=== PATIENT | female | born 1985 | race Asian ===

== ENCOUNTER 2025-01-15 19:55 | Emergency (ER) | payer OTHER ==
[2025-01-15 20:08] VITALS: BP 115/61; PULSE 65; RESP 20; TEMP 98.1; BMI 21.4
[2025-01-15] MEDS ORDERED: HIV POST EXPOSURE PROPHYLAXIS KIT PO ONE (20:39)
[2025-01-15] MEDS: HIV POST EXPOSURE PROPHYLAXIS KIT PO ONE (20:41)
[2025-01-15 20:44] LABS: BASO % 0.4 % (0-2.0); EOS % 2.1 % (0-4.5); HEMATOCRIT 40.3 % (32.4-45.2); HEMOGLOBIN 13.5 GM/dL (10.7-15.3); LYMPH % 19.1 % (8-40); MCH 28.6 pg (25.7-33.7); MCHC 33.5 g/dl (32.0-36.0); MEAN CELL VOLUME 85.3 fl (80-96); MEAN PLT VOLUME 8.7 fl (7.5-11.1); MONO % 7.8 % (3.8-10.2); NEUT % 70.6 % (42.8-82.8); PLATELET COUNT 262 10^3/uL (134-434); RBC 4.73 M/mm3 (3.60-5.2); RDW 13.1 % (11.6-15.6); WHITE BLOOD COUNT 8.3 K/mm3 (4.0-10.0)
[2025-01-15 21:02] LABS: CHLORIDE 106 mmol/L (98-107); POTASSIUM 3.9 mmol/L (3.5-5.1); SODIUM 138 mmol/L (136-145)
[2025-01-15 21:06] LABS: CALCIUM 8.6 mg/dL (8.5-10.1)
[2025-01-15 21:07] LABS: ANION GAP 7 mmol/L (4-13); BLOOD UREA NITROGEN 10.8 mg/dL (7-18); CO2 24 mmol/L (21-32); GLUCOSE,RANDOM 89 mg/dL (74-106)
[2025-01-15 21:10] LABS: CREATININE 0.6 mg/dL (0.55-1.3); SGOT/AST 14 U/L (15-37); SGPT/ALT 15 U/L (13-61)
[2025-01-15 21:12] LABS: BILIRUBIN,TOTAL 0.3 mg/dL (0.2-1)
[2025-01-15 21:13] LABS: ALK PHOS 63 U/L (45-117)
[2025-01-15 23:11] LABS: HIV INTERPRETATION NEGATIVE (NEGATIVE)
== END 2025-01-15 21:16 | disposition home or self-care (01) ==
LOC: JERFT 19:55
DX: Z77.21 Contact with and (suspected) exposure to potentially hazardous body fluids (principal)
CPT/HCPCS: 36415; 80053; 84702; 85025; 86704; 86803; 87340; 87389; 87517; 99283-25

== ENCOUNTER 2025-06-28 07:46 | Emergency (ER) | payer BC ==
[2025-06-28 07:54] VITALS: BP 100/62; PULSE 73; RESP 20; TEMP 97.9; BMI 21.4
[2025-06-28] MEDS ORDERED: FLUORESCEIN NA 1 EA STRIP ONE (08:10)
[2025-06-28] MEDS ORDERED: TETRACAINE 0.5% OPHTH SOLN 2 ML BOTTLE ONE (08:11)
[2025-06-28] MEDS: TETRACAINE 0.5% OPHTH SOLN 2 ML BOTTLE OS ONE (08:14)
[2025-06-28] MEDS: FLUORESCEIN NA 1 EA STRIP OS ONE (08:14)
[2025-06-28 08:58] LABS: THROAT:GRP A STREP NOT DETECTED (NOTDETECTED)
== END 2025-06-28 08:55 | disposition home or self-care (01) ==
LOC: JERFT 07:46
DX: J22 Unspecified acute lower respiratory infection (principal); H10.022 Other mucopurulent conjunctivitis, left eye; R05.9 Cough, unspecified; J02.9 Acute pharyngitis, unspecified; H57.89 Other specified disorders of eye and adnexa
CPT/HCPCS: 87637-QW; 87651; 99283-25